=== PATIENT | female | born 1945 | race Caucasian/White ===

== ENCOUNTER 2023-07-05 06:59 | Day surgery (SDC) | payer OTHER ==
[~2023-07-05] VITALS: Ht 163.8 cm; Wt 104.1 kg
[~2023-07-05 06:59] MED LIST: SODIUM CHLORIDE 0.9% 1,000 ML ONE
[2023-07-05] MEDS ORDERED: FentaNYL CITRATE PF 100 MCG/2 ML VIAL ONE (07:43)
[2023-07-05] MEDS ORDERED: MIDAZOLAM HCL 2 MG/2 ML VIAL ONE (07:43)
[2023-07-05] MEDS: SODIUM CHLORIDE 0.9% 1,000 ML IV ONE (08:17)
[2023-07-05 09:45] VITALS: PULSE 76; RESP 16; O2SAT 100
[2023-07-05] MEDS ORDERED: MethylPREDNISolone SOD SUCC 125 MG/2 ML VIAL ONE (10:29)
[2023-07-05] MEDS: MethylPREDNISolone SOD SUCC 125 MG/2 ML VIAL IVP ONE (10:40)
[2023-07-05] MEDS ORDERED: LIDOCAINE 2% 11 ML JELLY ONE (12:00)
[2023-07-05] MEDS ORDERED: LIDOCAINE 4% 50 ML SOLUTION ONE (12:00)
[2023-07-05] MEDS ORDERED: ALBUTEROL SULFATE 2.5 MG/0.5 ML NEB SOLUTION NEB ONE (12:00)
[2023-07-05] MEDS ORDERED: BENZOCAINE 20% 50 MCG/SPRAY 57 GM ONE (12:00)
== END 2023-07-05 11:40 | disposition home or self-care (01) ==
LOC: SURGERY 06:59
PROVIDERS: ATTEND Internal Medicine Critical Care Medicine
DX: R05.3 Chronic cough (principal); R06.2 Wheezing; R91.8 Other nonspecific abnormal finding of lung field; R91.1 Solitary pulmonary nodule; I70.0 Atherosclerosis of aorta; R04.2 Hemoptysis; J38.4 Edema of larynx; B37.0 Candidal stomatitis
CPT/HCPCS: 87206; 87101; 87220; 87070; 88108; 31623; 31624; 94640; 71045; 87015; J3010; J2250; J2930; Q9967; J7030; J7613; Z7610